=== PATIENT | female | born 1955 | race Two or more races ===

== ENCOUNTER 2017-05-23 17:18 | Emergency (ER) | payer OTHER ==
[~2017-05-23] VITALS: Ht 144.8 cm; Wt 65.8 kg
[~2017-05-23 17:18] MED LIST: LISI10TA2 PO; METO25TA4 PO
[2017-05-23 17:28] VITALS: BP 183/81
--- NOTE | 2017-05-23 17:32 | PHYS DOC ---
Past Medical History Past Medical History: Hypertension Past Surgical History: Other Additional Past Surgical Histo: Kidney stones. Alcohol Use: Rarely Drug Use: None Adult General Chief Complaint Chief Complaint: KNEE INJURY HPI HPI Patient is a 62 year old female with a history of hypertension presents the ED complaining of right hip and knee injuries 1 week. Patient states she slipped and fell on the floor. Patient states the pain radiates down her right leg. Patient is able to ambulate. Denies bowel/bladder changes or saddle anesthesia, head/neck injury, LOC, symptoms prior to fall, vision changes or nausea/ vomiting. Review of Systems Review of Systems Constitutional: Denies fever or chills [] Eyes: Denies change in visual acuity, redness, or eye pain [] HENT: Denies nasal congestion or sore throat [] Respiratory: Denies cough or shortness of breath [] Cardiovascular: No additional information not addressed in HPI [] GI: Denies abdominal pain, nausea, vomiting, bloody stools or diarrhea [] : Denies dysuria or hematuria [] Musculoskeletal: Denies back pain. Complains of hip and right knee pain. [] Integument: Denies rash or skin lesions [] Neurologic: Denies headache, focal weakness or sensory changes [] Endocrine: Denies polyuria or polydipsia [] Current Medications Current Medications Current Medications Medications (Trade) Dose Ordered Sig/Kyrie Start Time Stop Time Status Last Admin Dose Admin Acetaminophen/ Hydrocodone Bitart (Lortab 5/325) 1 tab 1X ONCE 05/23/17 17:45 05/23/17 17:46 DC 05/23/17 17:47 1 TAB Allergies Allergies Allergies Coded Allergies Type Severity Reaction Last Updated Verified No Known Drug Allergies 11/06/14 No Physical Exam Physical Exam Constitutional: Well developed, well nourished, no acute distress, non-toxic appearance. [] HENT: Normocephalic, atraumatic, bilateral external ears normal, oropharynx moist, no oral exudates, nose normal. [] Eyes: PERRLA, EOMI, conjunctiva normal, no discharge. [] Neck: Normal range of motion, no tenderness, supple, no stridor. [] Cardiovascular:Heart rate regular rhythm, no murmur [] Lungs & Thorax: Bilateral breath sounds clear to auscultation [] Abdomen: Bowel sounds normal, soft, no tenderness, no masses, no pulsatile masses. [] Skin: Warm, dry, no erythema, no rash. [] Back: No tenderness, no CVA tenderness. [] Extremities: MILD RIGHT LATERAL HIP TENDERNESS. MILD RIGHT ANTERIOR KNEE TENDERNESS., no cyanosis, no clubbing, ROM intact, no edema. [] Neurologic: Alert and oriented X 3, normal motor function, normal sensory function, no focal deficits noted. [] Psychologic: Affect normal, judgement normal, mood normal. [] Current Patient Data Vital Signs Vital Signs Date Time Temp Pulse Resp B/P (MAP) Pulse Ox O2 Delivery O2 Flow Rate FiO2 05/23/17 17:47 20 Room Air 05/23/17 17:28 98.0 61 97 98.0 EKG EKG [] Radiology/Procedures Radiology/Procedures PROCEDURE: KNEE RIGHT 3V Three-view right knee radiographs 05/23/2017 Clinical history: Fall with injury to the right knee earlier in the day. AP, lateral and oblique digital radiographs of the right knee were obtained. No fracture or dislocation of the right knee is seen. Mild degenerative changes are seen involving the medial and patellofemoral compartment of the right knee. Impression: No fracture or dislocation of the right knee is seen. [] PROCEDURE: HIP RIGHT 2V WITH PELVIS AP pelvis radiograph to include AP and lateral radiographs of the right hip 05/23/2017 Clinical history: Fall with injury to the right hip. An AP digital radiograph of the pelvis to include both hips was obtained. AP and lateral digital radiographs of the right hip were obtained. No pelvic bone fracture is seen. Both hips are intact. Specifically no fracture or dislocation of the right hip is seen. Impression: No fracture or dislocation is seen. Course & Med Decision Making Course & Med Decision Making Pertinent Labs and Imaging studies reviewed. (See chart for details) []Reviewed imaging with attending physician's. X-ray negative for acute injury. Patient placed in knee immobilizer. Neurovascular intact postplacement. Will discharge with walker because patient is in able to use crutches. Will discharge with analgesics and orthopedic follow-up. Discussed with follow-up next week. Discussed reasons to return to the ED. Patient and Family understands and agrees with plan. Dragon Disclaimer Dragon Disclaimer This electronic medical record was generated, in whole or in part, using a voice recognition dictation system. Departure Departure Impression: Primary Impression: Sciatica Additional Impressions: Leg pain Knee injury Disposition: HOME, SELF-CARE Referrals: NO PCP (PCP) WILMER JOSHI MD Patient Instructions: Sciatica Scripts Hydrocodone/Apap 5-325 (NORCO 5-325 TABLET) 1 Each Tablet 1 TAB PO TID, #8 TAB Prov: OZZY CRUZ 05/23/17 Problem Qualifiers OZZY CRUZ May 23, 2017 17:32
[2017-05-23] MEDS ORDERED: HYDROcodone/APAP 5/325MG 1 TAB TABLET PO ONE (17:45)
[2017-05-23] MEDS ORDERED: HYDR-971 PO (18:39)
--- NOTE | 2017-05-24 09:32 | RAD ---
AP pelvis radiograph to include AP and lateral radiographs of the right hip 05/23/2017 Clinical history: Fall with injury to the right hip. An AP digital radiograph of the pelvis to include both hips was obtained. AP and lateral digital radiographs of the right hip were obtained. No pelvic bone fracture is seen. Both hips are intact. Specifically no fracture or dislocation of the right hip is seen. Impression: No fracture or dislocation is seen.
--- NOTE | 2017-05-24 09:33 | RAD ---
Three-view right knee radiographs 05/23/2017 Clinical history: Fall with injury to the right knee earlier in the day. AP, lateral and oblique digital radiographs of the right knee were obtained. No fracture or dislocation of the right knee is seen. Mild degenerative changes are seen involving the medial and patellofemoral compartment of the right knee. Impression: No fracture or dislocation of the right knee is seen.
== END 2017-05-23 19:08 | disposition home or self-care (01) ==
LOC: ER 17:18
DX: S89.91XA Unspecified injury of right lower leg, initial encounter (principal); M54.31 Sciatica, right side; M25.551 Pain in right hip; I10 Essential (primary) hypertension; W01.0XXA Fall on same level from slipping, tripping and stumbling without subsequent striking against object, initial encounter; Y93.89 Activity, other specified; Y92.89 Other specified places as the place of occurrence of the external cause; Y99.8 Other external cause status
CPT/HCPCS: 29505; 73502; 73562; 99284-25